=== PATIENT | female | born 1975 | race African-American/Black ===

== ENCOUNTER 2018-01-19 20:55 | Inpatient (IN) | payer OTHER ==
[2018-01-19 21:27] VITALS: BMI 21.2
[2018-01-19] MEDS ORDERED: chlordiazePOXIDE HCL 25 MG CAPSULE PO ONE (21:33)
--- NOTE | 2018-01-19 21:58 | PDOC ---
History of Present Illness - General Chief Complaint: Alcohol intoxication Stated Complaint: WITHDRAWAL Time Seen by Provider: 01/19/18 21:15 History Source: Patient Exam Limitations: No Limitations - History of Present Illness Initial Comments: 01/19/18 21:52 Patient is a 42F with history of alcohol abuse and anxiety here today complaining of alcohol withdrawal. Patient states that she was sent from [facility] due to the facility being full. Patient endorses anxiety, parathesias, hand shaking. Denies chest pain, shortness of breath, fevers, chills. Endorses generalized weakness. Endorses headache. Denies SI/HI. Last drink was 3 days ago. Denies other drug use. Past History - Past Medical History Allergies/Adverse Reactions: Allergies Allergy/AdvReac Type Severity Reaction Status Date / Time No Known Allergies Allergy Verified 01/19/18 21:49 Home Medications: Ambulatory Orders Duloxetine HCl 30 mg PO DAILY 01/19/18 Ferrous Sulfate 325 mg PO DAILY 01/19/18 Thiamine HCl [B-1] 100 mg PO DAILY 01/19/18 COPD: No - Suicide/Smoking/Psychosocial Hx Smoking History: Never smoked Hx Alcohol Use: Yes Drug/Substance Use Hx: No Review of Systems - Review of Systems Comments:: 01/19/18 21:58 GENERAL/CONSTITUTIONAL: No fever. Positive for chills. HEAD, EYES, EARS, NOSE AND THROAT: No change in vision. No sore throat. CARDIOVASCULAR: No chest pain or shortness of breath RESPIRATORY: No cough, wheezing, or hemoptysis. GASTROINTESTINAL: Positive for nausea. Negative for vomiting, diarrhea or constipation. GENITOURINARY: No dysuria, frequency, or change in urination. MUSCULOSKELETAL: No joint or muscle swelling or pain. No neck or back pain. SKIN: No rash NEUROLOGIC: No headache, vertigo, loss of consciousness, or change in strength/ sensation. HEMATOLOGIC/LYMPHATIC: No anemia, easy bleeding, or history of blood clots. ALLERGIC/IMMUNOLOGIC: No hives or skin allergy. *Physical Exam - Vital Signs Last Vital Signs Temp Pulse Resp BP Pulse Ox 97.7 F 104 H 19 166/89 100 01/19/18 21:21 01/19/18 21:21 01/19/18 21:21 01/19/18 21:21 01/19/18 21:21 - Physical Exam Comments: 01/19/18 21:59 GENERAL: Awake, alert, and fully oriented, in no acute distress HEAD: No signs of trauma, normocephalic, atraumatic EYES: PERRLA, EOMI, sclera anicteric, conjunctiva clear ENT: Auricles normal inspection, hearing grossly normal, nares patent, oropharynx clear without exudates. Moist mucosa NECK: Normal ROM, supple, no lymphadenopathy, JVD, or masses LUNGS: No distress, speaks full sentences, clear to auscultation bilaterally HEART: Tachycardic, normal S1 and S2, no murmurs, rubs or gallops, peripheral pulses normal and equal bilaterally. ABDOMEN: Soft, nontender, normoactive bowel sounds. No guarding, no rebound. No masses EXTREMITIES: Normal inspection, Normal range of motion, no edema. No clubbing or cyanosis. NEUROLOGICAL: Cranial nerves II through XII grossly intact. Normal speech, normal gait, no focal sensorimotor deficits. Bilateraly shaking hands. SKIN: Warm, Dry, normal turgor, no rashes or lesions noted. ED Treatment Course - LABORATORY CBC & Chemistry Diagram: 01/19/18 21:57 01/19/18 21:57 - RADIOLOGY Radiology Studies Ordered: Category Date Time Status CHEST X-RAY PORTABLE* [RAD] Stat Radiology 01/19/18 21:29 Ordered Medical Decision Making - Medical Decision Making 01/19/18 21:59 Patient is 42F with history of alcohol abuse and anxiety here today complaining of alcohol withdrawal. Vital signs notable for tachycardia. Exam shows shaking, patient is complaining of parathesias. No safe discharge available tonight. Will workup with cbc, cmp, ekg, cxr, upreg, ua, etoh, salicylates, tylenol and drug screen. Will give 2mg ativan. EKG shows sinus rhythm of 79bpm. No st elevations/depressions. LVH by Shane criteria. GA interval short to 104, no true delta wave appreciated. Normal QRS/ QTc. 01/19/18 23:28 Laboratory Tests 01/19/18 21:57 WBC 2.9 L RDW 22.2 H Lymphocytes % 51.4 H Anisocytosis 2+ Macrocytosis 2+ CBC shows low WBC with lymphocytic shift, macrocytotic. HIV test added. 01/19/18 23:37 Laboratory Tests 01/19/18 01/19/18 01/19/18 21:57 21:57 21:57 Sodium 138 Magnesium 1.7 L Total Bilirubin 1.4 H AST 39 H ALT 17 Serum , Qual Negative Salicylates < 1.700 Acetaminophen <2.0 Alcohol, Quantitative < 5.0 CMP shows low mag, elevated bilirubin, alcoholic liver pattern in enzymes, negative , negative tox screen. Pending UA and UTox. Will ED obs patient. *DC/Admit/Observation/Transfer Diagnosis at time of Disposition: Alcohol abuse - Discharge Dispostion Condition at time of disposition: Stable - Referrals - Patient Instructions - Post Discharge Activity
[2018-01-19] MEDS ORDERED: FOLIC ACID INJECTION - 1 MG, THIAMINE HCL 100 MG, MULTIVIT INJECTION ADULT 10 ML in SOD... IVPB ONE (22:00)
[2018-01-19 22:08] LABS: BASO % 1.4 % (0-2.0); EOS % 1.6 % (0-4.5); HEMATOCRIT 40.4 % (32.4-45.2); HEMOGLOBIN 13.1 GM/dL (10.7-15.3); LYMPH % 51.4 % (8-40); MCH 25.9 pg (25.7-33.7); MCHC 32.3 g/dl (32.0-36.0); MEAN CELL VOLUME 80.4 fl (80-96); MEAN PLT VOLUME 7.4 fl (7.5-11.1); MONO % 7.9 % (3.8-10.2); NEUT % 37.7 % (42.8-82.8); PLATELET COUNT 287 K/MM3 (134-434); RBC 5.03 M/mm3 (3.60-5.2); RDW 22.2 % (11.6-15.6); WHITE BLOOD COUNT 2.9 K/mm3 (4.0-10.0)
[2018-01-19 22:22] LABS: ADD RBC MORPHOLOGY YES
--- NOTE | 2018-01-19 23:02 | PDOC ---
Attending Attestation - HPI HPI: 01/19/18 23:22 The patient is a 42 year old female, with a significant past medical history of alcohol abuse and anxiety, who presents to the emergency department complaining of alcohol withdrawal. The patient was at [facility] and was sent to the ED from [facility] detox due to capacity issues. Patient notes that she has been experiencing anxiety, hand shaking and headache. She notes that her last drink was 3 days ago. Allergies: None Past surgical history: None reported Social History: Alcohol abuse <Jeyson Ho - Last Filed: 01/19/18 23:21> - Resident Resident Name: Richard Vazquez - ED Attending Attestation I have performed the following: I have examined & evaluated the patient, The case was reviewed & discussed with the resident, I agree w/resident's findings & plan, Exceptions are as noted - Physicial Exam PE: 01/20/18 00:06 Patient is awake and alert, tremulous and anxious appearing, mildly tachycardic on initial evaluation; Normocephalic, atraumatic PERRLA, EOMI, no photophobia, conjunctiva mildly injected bilaterally; CTA Tachycardic,RRR Tremulous Moving all tremors symmetrically - Medical Decision Making 01/20/18 00:07 42-year-old female with history of alcohol abuse presents with signs and symptoms of acute alcohol withdrawal. Patient noted to be mildly tremulous and tachycardic on initial evaluation. Patient received 2 mg of Ativan for acute alcohol withdrawal. We'll obtain CBC/CMP/magnesium level. Will supplement electrolytes as needed. We'll administer thiamin. Will place in ED opts for evaluation at [facility] in the a.m. <Trevon Calderon - Last Filed: 01/20/18 00:07>
[2018-01-19 23:03] LABS: ALBUMIN 4.1 g/dl (3.4-5.0); ANION GAP 12 (8-16); BILIRUBIN,TOTAL 1.4 mg/dL (0.2-1.0); BLOOD UREA NITROGEN 6 mg/dL (7-18); CHLORIDE 100 mmol/L (98-107); CO2 26 mmol/L (21-32); CREATININE 0.7 mg/dL (0.55-1.02); GLUCOSE,RANDOM 94 mg/dL (74-106); SGPT/ALT 17 U/L (12-78); SODIUM 138 mmol/L (136-145); TOT PROT 8.3 g/dl (6.4-8.2)
[2018-01-19 23:04] LABS: ANISOCYTOSIS 2+; MACROCYTOSIS 2+; PLATELET ESTIMATE ADEQUATE
[2018-01-19 23:15] LABS: ALK PHOS 72 U/L (45-117); SALICYLATE < 1.700 mg/dL
[2018-01-19 23:29] LABS: ACETAMINOPHEN <2.0 ug/mL; POTASSIUM 3.8 mmol/L (3.5-5.1); SGOT/AST 39 U/L (15-37)
[2018-01-20] MEDS ORDERED: THIAMINE HCL 200 MG/2 ML VIAL IVPB ONE (00:08)
[2018-01-20] MEDS ORDERED: MAGNESIUM SULF 50% (8.12 MEQ/2 ML-1 GM VIAL) IVPB ONE (00:13)
[2018-01-20] MEDS ORDERED: THIAMINE HCL 200 MG/2 ML VIAL ONE (00:25)
[2018-01-20] MEDS ORDERED: MAGNESIUM SULF 50% (8.12 MEQ/2 ML-1 GM VIAL) ONE (00:26)
[2018-01-20] MEDS ORDERED: chlordiazePOXIDE HCL 25 MG CAPSULE PO PRN (00:43)
[2018-01-20] MEDS ORDERED: SODIUM CHLORIDE 1,000 ML IV SCH (00:45)
--- NOTE | 2018-01-20 01:04 | HP ---
CHIEF COMPLAINT: alcohol detox PCP: unknown HISTORY OF PRESENT ILLNESS: 42 year old female with hx of alcohol abuse and anxiety presents to the hospital for detox from alcohol. She is being seen after ativan administration by ED. She state that she went to [facility], but they were at capacity and so she was redirected here. Patient states that her last drink was a couple of days ago, but she endorses being a regular and frequent drinker. She states that she is mildly anxious, nauseous and tremulous. Denies chest pain, SOB, diaphoresis, vomiting, diarrhea, abdominal pain, headache, visual or auditory hallucinations, dysuria, polyuria. ER course was notable for: (1) mag 1.7 (2) wbc 2.9 (3) PAST MEDICAL HISTORY: anxiety, asthma PAST SURGICAL HISTORY: none Social History: Smoking: none Alcohol: last drink 3 days ago, frequent drinker Drugs: none Allergies No Known Allergies Allergy (Verified 01/19/18 21:49) HOME MEDICATIONS: Home Medications Medication Instructions Recorded Duloxetine HCl 30 mg PO DAILY 01/19/18 Ferrous Sulfate 325 mg PO DAILY 01/19/18 Thiamine HCl [B-1] 100 mg PO DAILY 01/19/18 REVIEW OF SYSTEMS CONSTITUTIONAL: Absent: fever, chills, diaphoresis, generalized weakness, malaise, loss of appetite, weight change HEENT: Absent: rhinorrhea, nasal congestion, throat pain, throat swelling, difficulty swallowing, mouth swelling, ear pain, eye pain, visual changes CARDIOVASCULAR: Absent: chest pain, syncope, palpitations, irregular heart rate, lightheadedness , peripheral edema RESPIRATORY: Absent: cough, shortness of breath, dyspnea with exertion, orthopnea, wheezing, stridor, hemoptysis GASTROINTESTINAL: Absent: abdominal pain, abdominal distension, nausea, vomiting, diarrhea, constipation, melena, hematochezia GENITOURINARY: Absent: dysuria, frequency, urgency, hesitancy, hematuria, flank pain, genital pain MUSCULOSKELETAL: Absent: myalgia, arthralgia, joint swelling, back pain, neck pain SKIN: Absent: rash, itching, pallor HEMATOLOGIC/IMMUNOLOGIC: Absent: easy bleeding, easy bruising, lymphadenopathy, frequent infections ENDOCRINE: Absent: unexplained weight gain, unexplained weight loss, heat intolerance, cold intolerance NEUROLOGIC: Absent: headache, focal weakness or paresthesias, dizziness, unsteady gait, seizure, mental status changes, bladder or bowel incontinence PSYCHIATRIC: Absent: anxiety, depression, suicidal or homicidal ideation, hallucinations. PHYSICAL EXAMINATION Vital Signs - 24 hr 01/19/18 21:21 Temperature 97.7 F Pulse Rate 104 H Respiratory 19 Rate Blood Pressure 166/89 O2 Sat by Pulse 100 Oximetry (%) GENERAL: A&Ox3, no acute distress, but patient is very somnolent and falls asleep easily during exam EYES: PERRLA, EOMI, no nystagmus noted ENT: Moist mucus membranes NECK: No JVD LUNGS: CTA, no wheezes HEART: RRR, no murmurs ABDOMEN: Soft, nontender, BS present MUSCULOSKELETAL: No CVA Tenderness EXTREMITIES: 2+ pulses, no edema. NEUROLOGICAL: Cranial nerves II-XII intact. Mild tremors noted on exam. Laboratory Results - last 24 hr 01/19/18 01/19/18 01/19/18 21:57 21:57 21:57 WBC 2.9 L RBC 5.03 Hgb 13.1 Hct 40.4 MCV 80.4 MCH 25.9 MCHC 32.3 RDW 22.2 H Plt Count 287 MPV 7.4 L Neutrophils % 37.7 L Lymphocytes % 51.4 H Monocytes % 7.9 Eosinophils % 1.6 Basophils % 1.4 Platelet Estimate Adequate Anisocytosis 2+ Macrocytosis 2+ Sodium 138 Potassium 3.8 Chloride 100 Carbon Dioxide 26 Anion Gap 12 BUN 6 L Creatinine 0.7 Creat Clearance w eGFR > 60 Random Glucose 94 Calcium 9.0 Magnesium Total Bilirubin 1.4 H AST 39 H ALT 17 Alkaline Phosphatase 72 Total Protein 8.3 H Albumin 4.1 Serum , Qual Negative Salicylates < 1.700 Acetaminophen <2.0 Alcohol, Quantitative < 5.0 HIV 1&2 Antibody Screen HIV P24 Antigen 01/19/18 01/19/18 21:57 23:45 WBC RBC Hgb Hct MCV MCH MCHC RDW Plt Count MPV Neutrophils % Lymphocytes % Monocytes % Eosinophils % Basophils % Platelet Estimate Anisocytosis Macrocytosis Sodium Potassium Chloride Carbon Dioxide Anion Gap BUN Creatinine Creat Clearance w eGFR Random Glucose Calcium Magnesium 1.7 L Total Bilirubin AST ALT Alkaline Phosphatase Total Protein Albumin Serum , Qual Salicylates Acetaminophen Alcohol, Quantitative HIV 1&2 Antibody Screen Negative HIV P24 Antigen Negative ASSESSMENT/PLAN: 42 yo F with hx of anxiety and alcohol abuse presents for alcohol detox #Alcohol Withdrawal: patient's CIWA score is 6 on my examination (after ED administered ativan), last drink was 3 days ago -banana bag -replete magnesium -ativan given by ED -folate -start librium detox protocol at 5am -monitor for signs of withdrawal, administer PRN librium -will likely be sent to [facility] in AM -Dr. Underwood consultation appreciated #Hypertension: pt BP 166/89, could be withdrawal related -repeat BP after a couple of hours #Hypomagnesemia: mag 1.7 -ED repleted mag with 2gm, recheck in AM #FEN NS @ 100cc/hr 1 bag replete magnesium and recheck BMP in AM regular diet #Prophylaxis -early ambulatoin #Disposition -admit obs, possible xfer to [facility] in the AM Visit type - Emergency Visit Emergency Visit: Yes ED Registration Date: 01/19/18 Care time: The patient presented to the Emergency Department on the above date and was hospitalized for further evaluation of their emergent condition. - New Patient This patient is new to me today: Yes Date on this admission: 01/20/18 - Critical Care Critical Care patient: No Hospitalist Screening - Colonoscopy Questionnaire Colonoscopy Questionnaire: Colonoscopy Questionnaire - Patient: 50 - 75 years old and never had a screening colonoscopy: Unknown History of colon or rectal polyps, or CA: Unknown History of IBD, Crohn's disease or UC: Unknown History of abdominal radiation therapy as a child: Unknown - Relative: 1 with colon or rectal CA, or polyps at age 60 or younger: Unknown Colon or rectal CA diagnosed at age 45 or younger: Unknown Multiple relatives with colon or rectal CA: Unknown - Outcome: Screening Result: Negative Screen
--- NOTE | 2018-01-20 04:28 | PN ---
Teaching Attending Note Name of Resident: Eros Silverio ATTENDING PHYSICIAN STATEMENT I saw and evaluated the patient. Chart, data, reviewed. I reviewed the resident's note and discussed the case with the resident. I agree with the resident's findings and plan as documented. SUBJECTIVE: 42 year old female with hx of alcohol abuse and anxiety presented to the hospital for detox from alcohol. She drinks half a pint a day, last drink was 3 days ago. Denied any pain, sob, hallucinations. Pt would like to go to [facility] for detox (no space last night). She reports having etoh withdrawal in the past. OBJECTIVE: Last Vital Signs Temp Pulse Resp BP Pulse Ox 97.7 F 104 H 19 166/89 100 01/19/18 21:21 01/19/18 21:21 01/19/18 21:21 01/19/18 21:21 01/19/18 21:21 general- nad, aaox3, tremulous heent -nc, at, moist oral mucosa neck -supple cv -s1+s2+rrr, no murmurs abdomen- soft, nt ext- tremor in upper extremities b/l skin- no rashes Abnormal Lab Results 01/19/18 01/19/18 01/19/18 21:57 21:57 21:57 WBC 2.9 L RDW 22.2 H MPV 7.4 L Neutrophils % 37.7 L Lymphocytes % 51.4 H BUN 6 L Magnesium 1.7 L Total Bilirubin 1.4 H AST 39 H Total Protein 8.3 H ekg- nsr ASSESSMENT AND PLAN: 42yo woman requesting etoh detox -observation -thiamine -folate -MV -IV fluid hydration -CIWA protocol -librium protocol -fall precaution -replace electrolytes leukopenia- likely 2/2 etoh abuse, HIV screening was negative -trend cbc DVT ppx -heparin sc
[2018-01-20] MEDS ORDERED: chlordiazePOXIDE HCL 25 MG CAPSULE PO SCH (05:00)
[2018-01-20] MEDS ORDERED: chlordiazePOXIDE HCL 25 MG CAPSULE ONE ×2 (05:15→11:48)
[2018-01-20 05:32] LABS: HEMATOCRIT 38.8 % (32.4-45.2); HEMOGLOBIN 12.2 GM/dL (10.7-15.3); MCH 25.6 pg (25.7-33.7); MCHC 31.5 g/dl (32.0-36.0); MEAN CELL VOLUME 81.2 fl (80-96); MEAN PLT VOLUME 7.4 fl (7.5-11.1); PLATELET COUNT 282 K/MM3 (134-434); RBC 4.77 M/mm3 (3.60-5.2); WHITE BLOOD COUNT 2.5 K/mm3 (4.0-10.0)
[2018-01-20] MEDS: chlordiazePOXIDE HCL 25 MG CAPSULE PO SCH ×2 (05:40→11:55)
[2018-01-20 05:53] LABS: ALBUMIN 3.6 g/dl (3.4-5.0); ANION GAP 8 (8-16); BILIRUBIN,TOTAL 1.3 mg/dL (0.2-1.0); BLOOD UREA NITROGEN 5 mg/dL (7-18); CALCIUM 8.3 mg/dL (8.5-10.1); CHLORIDE 106 mmol/L (98-107); CO2 27 mmol/L (21-32); CREATININE 0.7 mg/dL (0.55-1.02); GLUCOSE,RANDOM 80 mg/dL (74-106); MAGNESIUM 2.5 mg/dL (1.8-2.4); POTASSIUM 3.4 mmol/L (3.5-5.1); SGOT/AST 25 U/L (15-37); SGPT/ALT 15 U/L (12-78); SODIUM 141 mmol/L (136-145); TOT PROT 7.2 g/dl (6.4-8.2)
[2018-01-20 05:54] LABS: ALK PHOS 63 U/L (45-117)
[2018-01-20 05:59] LABS: COCAINE, UR NEGATIVE ng/ml (CUTOFF=300); METHADONE, UR NEGATIVE ng/ml (CUTOFF=300); OPIATES, URI NEGATIVE ng/ml (CUTOFF=300); PHENCYCLIDINE,URINE NEGATIVE ng/ml (CUTOFF=25); URINE AMPHETAMINES NEGATIVE ng/ml (CUTOFF=500); URINE BARBITURATES NEGATIVE ng/ml (CUTOFF=200)
[2018-01-20 06:00] LABS: URINE BENZODIAZEPINES POSITIVE ng/ml (CUTOFF=200)
[2018-01-20 06:24] LABS: URINE APPEARANCE CLEAR; URINE BILIRUBIN NEGATIVE (<2.0 mg/dL); URINE COLOR LT.YELLOW; URINE GLUCOSE (UA) NEGATIVE (NEGATIVE); URINE KETONE TRACE (NEGATIVE); URINE LEUK ESTERASE NEGATIVE (NEGATIVE); URINE NITRITE NEGATIVE (NEGATIVE); URINE PROTEIN NEGATIVE (NEGATIVE); URINE UROBILINOGEN NORMAL mg/dL (0.2-1.0)
[2018-01-20] MEDS ORDERED: POTASSIUM CHLORIDE ORAL LIQUID 20 MEQ/15 ML PO ONE (08:45)
[2018-01-20] MEDS ORDERED: DEXTROSE 5%-NORMAL SALINE 1,000 ML IV SCH (08:45)
[2018-01-20] MEDS ORDERED: CYANOCOBALAMIN 1,000 MCG TABLET (FP) PO SCH (10:00)
[2018-01-20] MEDS ORDERED: PRENATAL VITAMINS W/ FOLIC ACID TABLET (FP) PO SCH (10:00)
[2018-01-20] MEDS ORDERED: THIAMINE HCL 100 MG TABLET (FP) PO SCH ×2 (10:00→22:00)
[2018-01-20] MEDS ORDERED: POTASSIUM CHLORIDE ORAL LIQUID 20 MEQ/15 ML ONE (11:29)
--- NOTE | 2018-01-20 11:30 | MSN ---
Progress Note (short form) - Note Progress Note: HISTORY OF PRESENT ILLNESS CHIEF COMPLAINT: alcohol detox HISTORY OF PRESENT ILLNESS: Manny Carmona is a 42 year old female with a past medical history of anxiety, asthma, alcohol abuse, herniated disk who originally presented to [facility] for alcohol detoxification. At [facility], beds were not available and the patient was sent to the [facility] ED for further care. Patient had her last drink 3 days prior to presentation and prior to that had been drinking a pint of vodka daily. Patient endorsed nausea, headache, tremors, anxiety. In the ED, the patient was found with low magnesium. Patient was given a dose of Ativan, thiamine, and started on Librium protocol. Patient was seen and examined at the bedside. Patient continues to endorse headache, nausea, tremors, and anxiety. Patient also endorses mild shortness of breath and generalized fatigue. Patient stated that she also has numbness and a burning sensation on her left side on upper and lower extremities and abdomen. Patient stated that she had feelings of numbness on her left side for more than a year. She stated that she had a herniated disk on the left side and that she was told she had a small stroke years prior that she was unsure of what the workup was. Patient denied chest pain, abd pain, vomiting, c/d, blurry vision, double vision. CIWA Score 8 PAST MEDICAL HISTORY: anxiety, asthma, alcohol abuse, herniated disk PAST SURGICAL HISTORY: denies Social History: Smoking: denies Alcohol: daily drinking of a pint of vodka, last drink 3 days prior Drugs: denies REVIEW OF SYSTEMS: CONSTITUTIONAL: generalized weakness, chills Absent: fever, diaphoresis, malaise, loss of appetite, weight change HEENT: Absent: rhinorrhea, nasal congestion, throat pain, throat swelling, difficulty swallowing, mouth swelling, ear pain, eye pain, visual changes CARDIOVASCULAR: Absent: chest pain, syncope, palpitations, irregular heart rate, lightheadedness , peripheral edema RESPIRATORY: mild shortness of breath Absent: cough, dyspnea with exertion, orthopnea, wheezing, stridor, hemoptysis GASTROINTESTINAL: nausea, abdominal skin numbness on left side Absent: abdominal pain, abdominal distension, vomiting, diarrhea, constipation, melena, hematochezia GENITOURINARY: Absent: dysuria, frequency, urgency, hesitancy, hematuria, flank pain, genital pain MUSCULOSKELETAL: Absent: myalgia, arthralgia, joint swelling, back pain, neck pain SKIN: Absent: rash, itching, pallor HEMATOLOGIC/IMMUNOLOGIC: Absent: easy bleeding, easy bruising, lymphadenopathy, frequent infections ENDOCRINE: Absent: unexplained weight gain, unexplained weight loss, heat intolerance, cold intolerance NEUROLOGIC: headache Absent: focal weakness or paresthesias, dizziness, unsteady gait, seizure, mental status changes, bladder or bowel incontinence PSYCHIATRIC: anxiety Absent: depression, suicidal or homicidal ideation, hallucinations. PHYSICAL EXAMINATION GENERAL: Awake, alert, and fully oriented, tired appearing. HEAD: Normal with no signs of trauma. EYES: Pupils equal, round and reactive to light, extraocular movements intact, sclera anicteric, conjunctiva clear. Eyelid sagging bilaterally. Mild horizontal nystagmus present. NECK: Normal range of motion, supple without lymphadenopathy, JVD, or masses. LUNGS: Breath sounds equal, clear to auscultation bilaterally. No wheezes, and no crackles. No accessory muscle use. HEART: Regular rate and rhythm, normal S1 and S2 without murmur, rub or gallop. ABDOMEN: Soft, nontender, not distended, normoactive bowel sounds, no guarding, no rebound, no masses. Numbness on the left side of abdomen MUSCULOSKELETAL: Normal range of motion at all joints. No bony deformities or tenderness. UPPER EXTREMITIES: 2+ pulses, warm, well-perfused. No cyanosis. No clubbing. Cap refill <2 seconds. No peripheral edema. LOWER EXTREMITIES: 2+ pulses, warm, well-perfused. No calf tenderness. No peripheral edema. NEUROLOGICAL: Cranial nerves II-XII intact. Normal speech. Numbness to gross touch and pinprick on the left side on upper and lower extremities as well as trunk. 2/5 LUE, 2/5 RUE 3/5 LLE 3/5 RLE, poor patient effort on muscle strength testing. Weakness on ambulation PSYCHIATRIC: Cooperative, at times not understanding requests during physical exam. Good eye contact. Depressed and anxious mood. SKIN: Warm, dry, normal turgor, no rashes or lesions noted. Allergies Allergy/AdvReac Type Severity Reaction Status Date / Time No Known Allergies Allergy Verified 01/19/18 21:49 Last Vital Signs Temp Pulse Resp BP Pulse Ox 98.1 F 81 17 143/75 97 01/20/18 11:00 01/20/18 11:00 01/20/18 11:00 01/20/18 11:00 01/20/18 11:00 CBC, BMP 01/20/18 05:20 01/20/18 05:20 Laboratory Results - last 24 hr 01/19/18 01/19/18 01/19/18 21:57 21:57 21:57 WBC 2.9 L RBC 5.03 Hgb 13.1 Hct 40.4 MCV 80.4 MCH 25.9 MCHC 32.3 RDW 22.2 H Plt Count 287 MPV 7.4 L Neutrophils % 37.7 L Lymphocytes % 51.4 H Monocytes % 7.9 Eosinophils % 1.6 Basophils % 1.4 Platelet Estimate Adequate Anisocytosis 2+ Macrocytosis 2+ Sodium 138 Potassium 3.8 Chloride 100 Carbon Dioxide 26 Anion Gap 12 BUN 6 L Creatinine 0.7 Creat Clearance w eGFR > 60 Random Glucose 94 Calcium 9.0 Magnesium Total Bilirubin 1.4 H AST 39 H ALT 17 Alkaline Phosphatase 72 Total Protein 8.3 H Albumin 4.1 Serum , Qual Negative Urine Color Urine Appearance Urine pH Ur Specific [place] Urine Protein Urine Glucose (UA) Urine Ketones Urine Blood Urine Nitrite Urine Bilirubin Urine Urobilinogen Ur Leukocyte Esterase Salicylates < 1.700 Opiates Screen Methadone Screen Acetaminophen <2.0 Barbiturate Screen Phencyclidine Screen Ur Amphetamines Screen MDMA (Ecstasy) Screen Benzodiazepines Screen Cocaine Screen U Marijuana (THC) Screen Alcohol, Quantitative < 5.0 HIV 1&2 Antibody Screen HIV P24 Antigen 01/19/18 01/19/18 01/20/18 21:57 23:45 05:20 WBC 2.5 L RBC 4.77 Hgb 12.2 Hct 38.8 MCV 81.2 MCH 25.6 L MCHC 31.5 L RDW 22.0 H Plt Count 282 MPV 7.4 L Neutrophils % Lymphocytes % Monocytes % Eosinophils % Basophils % Platelet Estimate Anisocytosis Macrocytosis Sodium Potassium Chloride Carbon Dioxide Anion Gap BUN Creatinine Creat Clearance w eGFR Random Glucose Calcium Magnesium 1.7 L Total Bilirubin AST ALT Alkaline Phosphatase Total Protein Albumin Serum , Qual Urine Color Urine Appearance Urine pH Ur Specific [place] Urine Protein Urine Glucose (UA) Urine Ketones Urine Blood Urine Nitrite Urine Bilirubin Urine Urobilinogen Ur Leukocyte Esterase Salicylates Opiates Screen Methadone Screen Acetaminophen Barbiturate Screen Phencyclidine Screen Ur Amphetamines Screen MDMA (Ecstasy) Screen Benzodiazepines Screen Cocaine Screen U Marijuana (THC) Screen Alcohol, Quantitative HIV 1&2 Antibody Screen Negative HIV P24 Antigen Negative 01/20/18 01/20/18 01/20/18 05:20 05:28 05:28 WBC RBC Hgb Hct MCV MCH MCHC RDW Plt Count MPV Neutrophils % Lymphocytes % Monocytes % Eosinophils % Basophils % Platelet Estimate Anisocytosis Macrocytosis Sodium 141 Potassium 3.4 L Chloride 106 Carbon Dioxide 27 Anion Gap 8 BUN 5 L Creatinine 0.7 Creat Clearance w eGFR > 60 Random Glucose 80 Calcium 8.3 L Magnesium 2.5 H Total Bilirubin 1.3 H AST 25 ALT 15 Alkaline Phosphatase 63 Total Protein 7.2 Albumin 3.6 Serum , Qual Urine Color Lt.yellow Urine Appearance Clear Urine pH 7.0 Ur Specific [place] 1.008 Urine Protein Negative Urine Glucose (UA) Negative Urine Ketones Trace H Urine Blood Negative Urine Nitrite Negative Urine Bilirubin Negative Urine Urobilinogen Normal Ur Leukocyte Esterase Negative Salicylates Opiates Screen Negative Methadone Screen Negative Acetaminophen Barbiturate Screen Negative Phencyclidine Screen Negative Ur Amphetamines Screen Negative MDMA (Ecstasy) Screen Negative Benzodiazepines Screen Positive Cocaine Screen Negative U Marijuana (THC) Screen Negative Alcohol, Quantitative HIV 1&2 Antibody Screen HIV P24 Antigen Active Medications Generic Name Dose Route Start Last Admin Trade Name Freq PRN Reason Stop Dose Admin Chlordiazepoxide HCl 25 mg 01/21/18 05:00 Librium - PO 01/21/18 23:01 [id number] DANILO Chlordiazepoxide HCl 15 mg 01/22/18 05:00 Librium - PO 01/22/18 23:01 [id number] DANILO Chlordiazepoxide HCl 25 mg 01/20/18 00:43 Librium - PO 01/23/18 00:42 Q4H PRN WITHDRAWAL(CONT SUBST) Chlordiazepoxide HCl 50 mg 01/20/18 05:00 01/20/18 05:40 Librium - PO 01/20/18 23:01 50 mg [id number] DANILO Administration Cyanocobalamin 1,000 mcg 01/20/18 10:00 Vitamin B12 - PO DAILY DANILO Dextrose/Sodium Chloride 1,000 mls @ 75 mls/hr 01/20/18 08:45 D5-Ns - IV ASDIR DANILO Multivit/Folic Acid/Iron 1 tab 01/20/18 10:00 Vitamins (Sjr) - PO DAILY DANILO Thiamine HCl 100 mg 01/20/18 10:00 Vitamin B1 - PO BID DANILO IMAGING: CHEST X-RAY: no acute pathology noted HEAD 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 Alcohol Withdrawal - Ativan given in ED - Librium protocol started - Dr. Underwood consulted, recs appreciated - vitamin 1 tab daily - thiamine 100mg bid - Vit B12 1000mg daily - D5W NS Left Sided Numbness/Weakness - history of disk herniation - CT head as above DVT PPx - early ambulation F/E/N - D5W NS at 75cc/hr - hypomagnesima, repleted - hypokalemia, repleted - replete as necessary - regular diet Disposition - observation admission pending transfer to [facility] for detox
--- NOTE | 2018-01-20 11:57 | EKG ---
Test Reason : Blood Pressure : / mmHG Vent. Rate : 079 BPM Atrial Rate : 079 BPM P-R Int : 104 ms QRS Dur : 080 ms QT Int : 400 ms P-R-T Axes : 070 -17 033 degrees QTc Int : 458 ms SINUS RHYTHM WITH SHORT WV POSSIBLE LEFT ATRIAL ENLARGEMENT LEFT VENTRICULAR HYPERTROPHY ABNORMAL ECG NO PREVIOUS ECGS AVAILABLE Confirmed by BRENDON KEMP MD ([id number]) on 01/20/2018 11:57:24 AM Referred By: Confirmed By:BRENDON KEMP MD
--- NOTE | 2018-01-20 13:12 | PN ---
Teaching Attending Note Name of Resident: Onel Blandon ATTENDING PHYSICIAN STATEMENT I saw and evaluated the patient. I reviewed the resident's note and discussed the case with the resident. I agree with the resident's findings and plan as documented. SUBJECTIVE:c/o VENTURA, nausea, restlessness for the past few days. also complaining of complete L sided numbness. states she has had this for 1 year and was told it was because of herniated disc in her lower back. was placed on muscle relaxer and told to see a surgeon but she refused surgery. thinks she had a CT of the head and that it may have shown a stroke but can not recall. denies CP, SOB, fever, chills V/C/D, auditory/visual hallucinations OBJECTIVE: Last Vital Signs Temp Pulse Resp BP Pulse Ox 98.1 F 81 17 143/75 97 01/20/18 11:00 01/20/18 11:00 01/20/18 11:00 01/20/18 11:00 01/20/18 11:00 General lethargic, slow to respond, flat affect CV S1 S2 RRR no murmur/rub/gallop Lungs CTA B/L no wheezing/rales/rhonchi Neuro CN grossly intact, LUE 2/5, RUE 3/5 LLE 1/5 RLE 2/5 sensation reduced on LUE/LLE on the abdomen and the face ASSESSMENT AND PLAN: 42yo F wtih PMH continuous ETOH abuse, anxiety, asthma and herniated disc presented to the ER for ETOH withdrawal 1. Acute ETOH withdrawal- CIWA 6. on librium protocol. banana bag. counseled on risks assoc with prolonged drinking. interested in inpatient rehab once detox is completed. detox consult 2. Hemiparesis- atypical presentation to be due to herniated disc in the lumbar spine. also feel like patient is not giving an effort as weakness noted B/L. will obtain CT head to r/o CVA. PT assessment 3. Leukopenia- due to ETOH use. 4. hypokalmeia- Kcl po 5. Hypomagnesemia- resolved 6. DVT ppx- hep sq 7. awaiting bed at [facility] for detox
[2018-01-20 13:15] VITALS: BP 131/98; PULSE 59; TEMP 98
--- NOTE | 2018-01-20 13:54 | CONSULT ---
Consult Detox [facility] Reason for Current Admission/Consult: substance use Referred by:: mikhail garrison - History History of Present Illness: patient sent yesterday to [facility] from [facility] with intoxication, became tremulous admitted for alcohol detox. labs sig nificant for hypokalemia, toleratting libirum detox protocol - Alcohol/Substance Use Hx Alcohol Use: Yes Hx Substance Use: Yes Assessment Plan - Diagnosis (1) Alcohol dependence with uncomplicated withdrawal Status: Acute (2) Hypokalemia Status: Acute (3) Depression Status: Acute (4) Anxiety Status: Acute (5) Insomnia Status: Acute (6) Dehydration Status: Acute (7) Asthma Status: Chronic (8) Hemiparesis Status: Chronic - Plan Plan: chart, imaging, labs reviewed. discussed case with medical provider. as patiet is now medically stabel can transfer to [facility] if need be to compelte detox from alcoho. supplement k, fluids, viatmins. - Medication Detox Regimen/Protocol: Librium
--- NOTE | 2018-01-20 14:03 | DS ---
Physical Exam: SUBJECTIVE: Patient seen and examined at bedside. Pt groggy. 1-word answers. OBJECTIVE: Vital Signs Period Temp Pulse Resp BP Sys/Graff Pulse Ox Last 24 Hr 97.7 F-98.1 F 59-104 17-19 127-166/75-98 97-100 PHYSICAL EXAM GENERAL: The patient is drowsy in no acute distress. HEAD: Normal with no signs of trauma. slight tremor EYES: extraocular movements intact, sclera anicteric, conjunctiva clear. ENT: oropharynx clear without exudates, moist mucous membranes. NECK: Trachea midline, full range of motion, supple. LUNGS: Breath sounds equal, clear to auscultation bilaterally, no wheezes, no crackles, no accessory muscle use. HEART: Regular rate and rhythm, S1, S2 without murmur, rub or gallop. ABDOMEN: Soft, nontender, nondistended, normoactive bowel sounds, no guarding, no rebound, no hepatosplenomegaly, no masses. EXTREMITIES: 2+ pulses, warm, well-perfused, no edema. No asterixis noted. Mild tremor on extension. NEUROLOGICAL: Pt uncooperative for exam. gait not observed. PSYCH: Normal mood, normal affect. SKIN: Warm, dry, normal turgor, no rashes or lesions noted. LABS Laboratory Results - last 24 hr 01/19/18 01/19/18 01/19/18 21:57 21:57 21:57 WBC 2.9 L RBC 5.03 Hgb 13.1 Hct 40.4 MCV 80.4 MCH 25.9 MCHC 32.3 RDW 22.2 H Plt Count 287 MPV 7.4 L Neutrophils % 37.7 L Lymphocytes % 51.4 H Monocytes % 7.9 Eosinophils % 1.6 Basophils % 1.4 Platelet Estimate Adequate Anisocytosis 2+ Macrocytosis 2+ Sodium 138 Potassium 3.8 Chloride 100 Carbon Dioxide 26 Anion Gap 12 BUN 6 L Creatinine 0.7 Creat Clearance w eGFR > 60 Random Glucose 94 Calcium 9.0 Magnesium Total Bilirubin 1.4 H AST 39 H ALT 17 Alkaline Phosphatase 72 Total Protein 8.3 H Albumin 4.1 Vitamin B12 Serum Folate TSH Serum , Qual Negative Urine Color Urine Appearance Urine pH Ur Specific [place] Urine Protein Urine Glucose (UA) Urine Ketones Urine Blood Urine Nitrite Urine Bilirubin Urine Urobilinogen Ur Leukocyte Esterase Salicylates < 1.700 Opiates Screen Methadone Screen Acetaminophen <2.0 Barbiturate Screen Phencyclidine Screen Ur Amphetamines Screen MDMA (Ecstasy) Screen Benzodiazepines Screen Cocaine Screen U Marijuana (THC) Screen Alcohol, Quantitative < 5.0 HIV 1&2 Antibody Screen HIV P24 Antigen 01/19/18 01/19/18 01/20/18 21:57 23:45 05:20 WBC 2.5 L RBC 4.77 Hgb 12.2 Hct 38.8 MCV 81.2 MCH 25.6 L MCHC 31.5 L RDW 22.0 H Plt Count 282 MPV 7.4 L Neutrophils % Lymphocytes % Monocytes % Eosinophils % Basophils % Platelet Estimate Anisocytosis Macrocytosis Sodium Potassium Chloride Carbon Dioxide Anion Gap BUN Creatinine Creat Clearance w eGFR Random Glucose Calcium Magnesium 1.7 L Total Bilirubin AST ALT Alkaline Phosphatase Total Protein Albumin Vitamin B12 Serum Folate TSH Serum , Qual Urine Color Urine Appearance Urine pH Ur Specific [place] Urine Protein Urine Glucose (UA) Urine Ketones Urine Blood Urine Nitrite Urine Bilirubin Urine Urobilinogen Ur Leukocyte Esterase Salicylates Opiates Screen Methadone Screen Acetaminophen Barbiturate Screen Phencyclidine Screen Ur Amphetamines Screen MDMA (Ecstasy) Screen Benzodiazepines Screen Cocaine Screen U Marijuana (THC) Screen Alcohol, Quantitative HIV 1&2 Antibody Screen Negative HIV P24 Antigen Negative 01/20/18 01/20/18 01/20/18 05:20 05:20 05:20 WBC RBC Hgb Hct MCV MCH MCHC RDW Plt Count MPV Neutrophils % Lymphocytes % Monocytes % Eosinophils % Basophils % Platelet Estimate Anisocytosis Macrocytosis Sodium 141 Potassium 3.4 L Chloride 106 Carbon Dioxide 27 Anion Gap 8 BUN 5 L Creatinine 0.7 Creat Clearance w eGFR > 60 Random Glucose 80 Calcium 8.3 L Magnesium 2.5 H Total Bilirubin 1.3 H AST 25 ALT 15 Alkaline Phosphatase 63 Total Protein 7.2 Albumin 3.6 Vitamin B12 475 Cancelled Serum Folate Cancelled TSH 0.91 Cancelled Serum , Qual Urine Color Urine Appearance Urine pH Ur Specific [place] Urine Protein Urine Glucose (UA) Urine Ketones Urine Blood Urine Nitrite Urine Bilirubin Urine Urobilinogen Ur Leukocyte Esterase Salicylates Opiates Screen Methadone Screen Acetaminophen Barbiturate Screen Phencyclidine Screen Ur Amphetamines Screen MDMA (Ecstasy) Screen Benzodiazepines Screen Cocaine Screen U Marijuana (THC) Screen Alcohol, Quantitative HIV 1&2 Antibody Screen HIV P24 Antigen 01/20/18 01/20/18 05:28 05:28 WBC RBC Hgb Hct MCV MCH MCHC RDW Plt Count MPV Neutrophils % Lymphocytes % Monocytes % Eosinophils % Basophils % Platelet Estimate Anisocytosis Macrocytosis Sodium Potassium Chloride Carbon Dioxide Anion Gap BUN Creatinine Creat Clearance w eGFR Random Glucose Calcium Magnesium Total Bilirubin AST ALT Alkaline Phosphatase Total Protein Albumin Vitamin B12 Serum Folate TSH Serum , Qual Urine Color Lt.yellow Urine Appearance Clear Urine pH 7.0 Ur Specific [place] 1.008 Urine Protein Negative Urine Glucose (UA) Negative Urine Ketones Trace H Urine Blood Negative Urine Nitrite Negative Urine Bilirubin Negative Urine Urobilinogen Normal Ur Leukocyte Esterase Negative Salicylates Opiates Screen Negative Methadone Screen Negative Acetaminophen Barbiturate Screen Negative Phencyclidine Screen Negative Ur Amphetamines Screen Negative MDMA (Ecstasy) Screen Negative Benzodiazepines Screen Positive Cocaine Screen Negative U Marijuana (THC) Screen Negative Alcohol, Quantitative HIV 1&2 Antibody Screen HIV P24 Antigen HOSPITAL COURSE: Date of Admission:01/20/18 Date of Discharge: 01/20/18 Pt is a 42y/o female with a significant past medical history of alcohol abuse admitted for alcohol detoxification. Pt was placed on observation and eventually admitted while pending availablility at detox facility [facility]. Pt received Ativan in the ED and was started on Librium protocol. She was also given Vit B12, Folate, and Thiamine. Dr. Underwood was consulted. Once she was more alert, pt mentioned that she had left sided numbness for the last year. Head CT (01/20/2018) was done to r/o old stroke. 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 Pt was given fluids and electrolytes were repleted. Following a conversation with Dr. Underwood, pt was accepted to [facility] and was transferred shortly thereafter. Minutes to complete discharge: 30 Discharge Summary Reason For Visit: ALCOHOL ABUSE Current Active Problems Alcohol abuse (Acute) Alcohol dependence with uncomplicated withdrawal (Acute) Anxiety (Acute) Dehydration (Acute) Depression (Acute) Hypokalemia (Acute) Insomnia (Acute) Asthma (Chronic) Hemiparesis (Chronic) Condition: Stable - Instructions Diet, Activity, Other Instructions: You were brought to the hospital because of alcohol intoxication. You are being sent to [facility] to complete your detox. You need to follow up with your primary care doctor. You need to follow up with a neurologist as an out patient. If you do not know one, you can ask your primary care doctor for help. If you do not have a primary care doctor, you can come to the [facility]. Onel Blandon MD / Shannon Sosa MD [phone] [address], [place] [address] Your case was discussed with Dr. Underwood, and you have been accepted to [facility] to finish your detox. Take fall risk precaution. You are being sent with a medication to help prevent seizures. It will be given to you by the staff at [facility]. You are being sent with vitamins (thiamine, folate, b12) to ensure you are not deficient. You should continue taking your home medications once you finish your detox at [facility]. You should not drink alcohol. Referrals: Sabas Hearn DO [Staff Physician] - (neurology) Jack Underwood MD [Staff Physician] - 1 Week Onel Blandon RES [Resident] - 1 Week Shannon Sosa MD [Staff Physician] - 1 Week Disposition: TRANSFER ACUTE CARE/OTHER HOSP - Home Medications Comprehensive Discharge Medication List: Ambulatory Orders Duloxetine HCl 30 mg PO DAILY 01/19/18 Ferrous Sulfate 325 mg PO DAILY 01/19/18 Thiamine HCl [B-1] 100 mg PO DAILY 01/19/18 Chlordiazepoxide [Librium -] 15 mg PO [id number] capsule MDD 15 01/20/18 Chlordiazepoxide [Librium -] 25 mg PO Q4H PRN capsule MDD 150 01/20/18 Chlordiazepoxide [Librium -] 25 mg PO [id number] capsule MDD 100 01/20/18 Chlordiazepoxide [Librium -] 50 mg PO [id number] capsule MDD 200 01/20/18 Chlordiazepoxide [Librium -] 50 mg PO [id number] capsule MDD 200 01/20/18 Cyanocobalamin [Vitamin B12 -] 1,000 mcg PO DAILY #30 tablet 01/20/18 Vitamins (Sjr) - 1 tab PO DAILY #30 tablet 01/20/18 This patient is new to me today: No Emergency Visit: No Critical Care patient: No - Discharge Referral Referred to [facility] No
[2018-01-20] MEDS ORDERED: POTASSIUM CHLORIDE TABS 20 MEQ TABLET.ER (FP) PO SCH (22:00)
[2018-01-21] MEDS ORDERED: chlordiazePOXIDE HCL 25 MG CAPSULE PO SCH (05:00)
[2018-01-22] MEDS ORDERED: chlordiazePOXIDE 5 MG CAPSULE PO SCH (05:00)
== END 2018-01-20 15:51 | disposition other institution (70) | DRG 775 ==
LOC: JER 20:55 → JERBED 23:51 → UNDOADMOB 23:57 → JERBED 23:57 → OBSVTOIN 01-20 07:47 → J5S 01-20 12:41
PROVIDERS: ADMIT Internal Medicine; ATTEND Internal Medicine
PROC: HZ2ZZZZ Detoxification Services for Substance Abuse Treatment (ICD-10-PCS; principal; 2018-01-20)
DX: F10.230 Alcohol dependence with withdrawal, uncomplicated (principal); E86.0 Dehydration; F41.8 Other specified anxiety disorders; E87.6 Hypokalemia; G47.00 Insomnia, unspecified; J45.909 Unspecified asthma, uncomplicated; G81.90 Hemiplegia, unspecified affecting unspecified side; D72.819 Decreased white blood cell count, unspecified; E83.42 Hypomagnesemia
CPT/HCPCS: 36415; 70450-TC; 71045-TC-FY; 80053; 80307; 81003; 82607; 82746; 83735; 84443; 84703; 85025; 85027; 87389; 93005; 93010; 99284-25; G0378; J7030

== ENCOUNTER 2018-01-20 16:14 | Inpatient (IN) | payer OTHER ==
[2018-01-20 17:42] VITALS: BMI 19.5
--- NOTE | 2018-01-20 18:31 | HP ---
CIWA Score - CIWA Score Nausea/Vomitin Muscle Tremors: 3 Anxiety: 1-Mildly Anxious Agitation: 0-Normal Activity Paroxysmal Sweats: 1-Minimal Palms Moist Orientation: 0-Oriented Tacttile Disturbances: 2-Mild Itch/Numbness/Burn (both feet) Auditory Disturbances: 0-None Visual Disturbances: 1-Very Mild Sensitivity Headache: 2-Mild CIWA-Ar Total Score: 12 Admission ROS BHS - HPI Chief Complaint: " My hands get more shaky when I do not drink." Allergies/Adverse Reactions: Allergies Allergy/AdvReac Type Severity Reaction Status Date / Time No Known Allergies Allergy Verified 01/20/18 17:42 History of Present Illness: Patient a is a 42 year old female with a past medical history of alcohol dependence is here seeking detox for the first time. Patient was evaluated yesterday at [facility] for alcohol withdrawal sx. PMHX: HTN, asthma, neuropathy, herniated disk , anxiety, depression. longest sobriety 4 weeks. Denies suicidal / homicidal ideation or suicide attempts. Exam Limitations: No Limitations - Ebola screening Have you been sick,other than usual withdrawal symptoms: No - Review of Systems Constitutional: Chills, Loss of Appetite, Changes in sleep EENT: reports: No Symptoms Reported Respiratory: reports: No Symptoms reported GI: reports: No Symptoms Reported, Nausea, Poor Appetite, Poor Fluid Intake : reports: No Symptoms Reported Musculoskeletal: reports: Joint Pain (left hip) Integumentary: reports: Sweating Neuro: reports: Headache Endocrine: reports: No Symptoms Reported Hematology: reports: Anemia Psychiatric: reports: Orientated x3, Anxious Other Systems: Reviewed and Negative Patient History - Patient Medical History Hx Anemia: No Hx Asthma: No Hx Chronic Obstructive Pulmonary Disease (COPD): No Hx Cancer: No Hx Cardiac Disorders: No Hx Congestive Heart Failure: No Hx Hypertension: Yes Hx Hypercholesterolemia: No Hx Pacemaker: No HX Cerebrovascular Accident: No Hx Seizures: No Hx Dementia: No Hx Diabetes: No Hx Gastrointestinal Disorders: No Hx Liver Disease: No Hx Genitourinary Disorders: No Hx Sexually Transmitted Disorders: No Hx Renal Disease (ESRD): No Hx Thyroid Disease: No Hx Human Immunodeficiency Virus (HIV): No (last tested three months ago ) Hx Hepatitis C: No Hx Depression: Yes Hx Suicide Attempt: No Hx Bipolar Disorder: No Hx Schizophrenia: No - Patient Surgical History Past Surgical History: No Hx Neurologic Surgery: No Hx Cataract Extraction: No Hx Cardiac Surgery: No Hx Lung Surgery: No Hx Breast Surgery: No Hx Breast Biopsy: No Hx Abdominal Surgery: No Hx Appendectomy: No Hx Cholecystectomy: No Hx Genitourinary Surgery: No Hx Section: No Hx Orthopedic Surgery: No Hx Hysterectomy: No Anesthesia Reaction: No - PPD History Previous Implant?: Yes Documented Results: Negative w/o proof PPD to be Administered?: Yes - Reproductive History Patient is a Female of Child Bearing Age (11 -55 yrs old): Yes Last Menstrual Period: 01/18/18 Patient : No - Smoking Cessation Smoking history: Never smoked Have you smoked in the past 12 months: No Hx Chewing Tobacco Use: No Initiated information on smoking cessation: No - Substance & Tx. History Hx Alcohol Use: Yes Hx Substance Use: Yes Substance Use Type: Alcohol Hx Substance Use Treatment: No - Substances Abused Alcohol Route: Oral Frequency: Daily Amount used: LIQUOR- 3 PINTS Age of first use: 35 Date of Last Use: 01/18/18 Family Disease History - Family Disease History Family Disease History: Diabetes: Mother (alive ), Other: Father (alive, legally blind ) Admission Physical Exam S - Vital Signs Vital Signs: Vital Signs - 24 hr 01/20/18 17:40 Temperature 97.6 F Pulse Rate 118 H Respiratory 20 Rate Blood Pressure 133/113 - Physical General Appearance: Yes: Mild Distress, Thin, Tremorous, Sweating, Anxious HEENTM: Yes: EOMI, Hearing grossly Normal, Normal ENT Inspection, Normocephalic , Normal Voice, Pharynx Normal, Tm's normal Respiratory: Yes: Chest Non-Tender, Lungs Clear, Normal Breath Sounds, No Respiratory Distress, No Accessory Muscle Use Breast: Yes: Breast Exam Deferred Cardiology: Yes: Regular Rhythm, Regular Rate Abdominal: Yes: Normal Bowel Sounds, Non Tender, Flat, Soft Genitourinary: Yes: Within Normal Limits Back: Yes: Normal Inspection Musculoskeletal: Yes: full range of Motion, Gait Steady, Pelvis Stable Extremities: Yes: Normal Capillary Refill, Normal Inspection, Normal Range of Motion, Non-Tender Neurological: Yes: phlebotomy director II-XII NML intact, Fully Oriented, Alert, Motor Strength 5/5, Depressed Affect Integumentary: Yes: Normal Color, Warm, Diaphoresis Lymphatic: Yes: Within Normal Limits - Diagnostic (1) Asthma Current Visit: Yes Status: Chronic Qualifiers: Asthma severity: unspecified severity Asthma persistence: unspecified Asthma complication type: unspecified Qualified Code(s): J45.909 - Unspecified asthma, uncomplicated (2) Alcohol dependence with uncomplicated withdrawal Current Visit: Yes Status: Acute (3) Dehydration Current Visit: Yes Status: Acute (4) Depression Current Visit: Yes Status: Acute Qualifiers: Depression Type: unspecified Qualified Code(s): F32.9 - Major depressive disorder, single episode, unspecified (5) Elevated blood pressure reading in office with diagnosis of hypertension Current Visit: Yes Status: Acute Cleared for Admission S - Detox or Rehab S Level of Care: Medically Managed Detox Regimen/Protocol: Librium S Breath Alcohol Content Breath Alcohol Content: 0 Urine Pregancy Test - Result Urine Test Results: Negative- NO Line Present Urine Drug Screen - Results Drug Screen Negative: No Urine Drug Screen Results: BZO-Benzodiazepines
[2018-01-20] MEDS ORDERED: MAG HYDROX/AL HYDROX/SIMETH 30 ML UNIT-DOSE CUP PO PRN (18:44)
[2018-01-20] MEDS ORDERED: P-EPHED 60MG/TRIPROLIDI 2.5MG TABLET PO PRN (18:44)
[2018-01-20] MEDS ORDERED: MAGNESIUM HYDROX 2400MG/30ML ORAL SUSPENSION 30 ML CUP PO PRN (18:44)
[2018-01-20] MEDS ORDERED: IBUPROFEN 400 MG TABLET (FP) PO PRN (18:44)
[2018-01-20] MEDS ORDERED: MENTHOL/PHENOL 1 EACH UD MM PRN (18:44)
[2018-01-20] MEDS ORDERED: MAGNESIUM CITRATE 300 ML BOTTLE PO PRN (18:44)
[2018-01-20] MEDS ORDERED: LOPERAMIDE HCL 2 MG CAPSULE PO PRN (18:44)
[2018-01-20] MEDS ORDERED: chlordiazePOXIDE HCL 25 MG CAPSULE PO PRN (19:29)
[2018-01-20] MEDS ORDERED: chlordiazePOXIDE HCL 25 MG CAPSULE PO ONE (19:30)
[2018-01-20] MEDS ORDERED: guaiFENesin/D-METHORPHAN HB 10 ML UNIT-DOSE CUPS PO PRN (19:32)
[2018-01-20] MEDS ORDERED: hydrOXYzine PAMOATE 50 MG CAPSULE (FP) PO PRN (19:32)
[2018-01-20] MEDS: chlordiazePOXIDE HCL 25 MG CAPSULE PO SCH (22:21)
[2018-01-20] MEDS: THIAMINE HCL 100 MG TABLET (FP) PO SCH (22:21)
[2018-01-21] MEDS: chlordiazePOXIDE HCL 25 MG CAPSULE PO SCH ×4 (05:35→22:21)
[2018-01-21 09:38] LABS: HEMATOCRIT 35.5 % (32.4-45.2); HEMOGLOBIN 11.3 GM/dL (10.7-15.3); MCH 26.2 pg (25.7-33.7); MCHC 31.9 g/dl (32.0-36.0); MEAN CELL VOLUME 82.1 fl (80-96); MEAN PLT VOLUME 7.9 fl (7.5-11.1); PLATELET COUNT 240 K/MM3 (134-434); RBC 4.32 M/mm3 (3.60-5.2); RDW 21.8 % (11.6-15.6); WHITE BLOOD COUNT 3.7 K/mm3 (4.0-10.0)
[2018-01-21 09:48] LABS: CHLORIDE 107 mmol/L (98-107); POTASSIUM 3.8 mmol/L (3.5-5.1); SODIUM 139 mmol/L (136-145)
[2018-01-21 09:59] LABS: ALBUMIN 3.3 g/dl (3.4-5.0); ALK PHOS 57 U/L (45-117); ANION GAP 8 (8-16); BILIRUBIN,TOTAL 0.5 mg/dL (0.2-1.0); BLOOD UREA NITROGEN 5 mg/dL (7-18); CO2 24 mmol/L (21-32); CREATININE 0.7 mg/dL (0.55-1.02); GLUCOSE,RANDOM 85 mg/dL (74-106); SGOT/AST 18 U/L (15-37); SGPT/ALT 13 U/L (12-78); TOT PROT 6.7 g/dl (6.4-8.2)
--- NOTE | 2018-01-21 10:24 | PN ---
[facility] CIWA - CIWA Score Nausea/Vomitin Muscle Tremors: 3 Anxiety: 3 Agitation: 3 Paroxysmal Sweats: 1-Minimal Palms Moist Orientation: 0-Oriented Tacttile Disturbances: 1-Very Mild Itch/Numbness Auditory Disturbances: 1-Very Mild Visual Disturbances: 0-None Headache: 2-Mild CIWA-Ar Total Score: 17 S Progress Note (SOAP) Subjective: ALERT,IRRITABLE,ANXIOUS,INTERRUPTED SLEEP, Objective: 01/21/18 10:21 Vital Signs Temperature 98.1 F 01/21/18 09:42 Pulse Rate 77 01/21/18 09:42 Respiratory Rate 16 01/21/18 09:42 Blood Pressure 110/74 01/21/18 09:42 O2 Sat by Pulse Oximetry (%) EKG NSR,LVH PROLONG QT 388/455 NO CHEST PAIN,NO SOB,NO DIZZINESS Laboratory Last Values WBC 3.7 K/mm3 (4.0-10.0) L D 01/21/18 07:00 RBC 4.32 M/mm3 (3.60-5.2) 01/21/18 07:00 Hgb 11.3 GM/dL (10.7-15.3) 01/21/18 07:00 Hct 35.5 % (32.4-45.2) 01/21/18 07:00 MCV 82.1 fl (80-96) 01/21/18 07:00 MCH 26.2 pg (25.7-33.7) 01/21/18 07:00 MCHC 31.9 g/dl (32.0-36.0) L 01/21/18 07:00 RDW 21.8 % (11.6-15.6) H 01/21/18 07:00 Plt Count 240 K/MM3 (134-434) 01/21/18 07:00 MPV 7.9 fl (7.5-11.1) 01/21/18 07:00 Sodium 139 mmol/L (136-145) 01/21/18 07:00 Potassium 3.8 mmol/L (3.5-5.1) 01/21/18 07:00 Chloride 107 mmol/L (98-107) 01/21/18 07:00 Carbon Dioxide 24 mmol/L (21-32) 01/21/18 07:00 Anion Gap 8 (8-16) 01/21/18 07:00 BUN 5 mg/dL (7-18) L 01/21/18 07:00 Creatinine 0.7 mg/dL (0.55-1.02) 01/21/18 07:00 Creat Clearance w eGFR > 60 (>60) 01/21/18 07:00 Random Glucose 85 mg/dL (74-106) 01/21/18 07:00 Calcium 9.0 mg/dL (8.5-10.1) 01/21/18 07:00 Total Bilirubin 0.5 mg/dL (0.2-1.0) D 01/21/18 07:00 AST 18 U/L (15-37) 01/21/18 07:00 ALT 13 U/L (12-78) 01/21/18 07:00 Alkaline Phosphatase 57 U/L (45-117) 01/21/18 07:00 Total Protein 6.7 g/dl (6.4-8.2) 01/21/18 07:00 Albumin 3.3 g/dl (3.4-5.0) L 01/21/18 07:00 01/21/18 10:23 LABS PENDING Assessment: 01/21/18 10:23 WITHDRAWAL SYMPTOM Plan: CONTINUE DETOX
[2018-01-21] MEDS: CYANOCOBALAMIN 1,000 MCG TABLET (FP) PO SCH (10:50)
[2018-01-21] MEDS: PRENATAL VITAMINS W/ FOLIC ACID TABLET (FP) PO SCH (11:04)
[2018-01-21] MEDS: amLODIPine BESYLATE 5 MG TABLET (FP) PO SCH (11:04)
[2018-01-21] MEDS: FERROUS SO4 325 MG TABLET (FP) PO SCH (11:05)
--- NOTE | 2018-01-21 11:23 | EKG ---
Test Reason : Blood Pressure : / mmHG Vent. Rate : 065 BPM Atrial Rate : 065 BPM P-R Int : 114 ms QRS Dur : 088 ms QT Int : 394 ms P-R-T Axes : 070 -13 050 degrees QTc Int : 409 ms NORMAL SINUS RHYTHM WITH SINUS ARRHYTHMIA MINIMAL VOLTAGE CRITERIA FOR LVH, MAY BE NORMAL VARIANT WHEN COMPARED WITH ECG OF 19-JAN-2018 21:36, QT HAS SHORTENED Confirmed by BAYLEE CARTER, KUSHAL ([id number]) on 01/21/2018 11:23:52 AM Referred By: Confirmed By:KUSHAL BEACH MD
--- NOTE | 2018-01-21 17:30 | CONSULT ---
[facility] Psychiatric Consult - Data Date of interview: 01/21/18 Admission source: [facility] Identifying data: First admission to [facility] for this 42 y/o AA female seeking detox treatment on for alcohol dependence.Patient is single,a mother of two,domiciled,unemployed and supported by relatives. Substance Abuse History: Confirmed by patient in this session.Smoking history: Never smoked. Have you smoked in the past 12 months: No. Hx Chewing Tobacco Use: No. Initiated information on smoking cessation: No. - Substance & Tx. History. Hx Alcohol Use: Yes. Hx Substance Use: Yes. Substance Use Type: Alcohol. Hx Substance Use Treatment: No. - Substances Abused. Alcohol. Route: Oral. Frequency: Daily. Amount used: LIQUOR- 3 PINTS. Age of first use : 35. Date of Last Use: 01/18/18 Medical History: Bronchial asthma,hypertension,neuropathy,herniated discs and chronic lumbar pain. Psychiatric History: Patient denies. Physical/Sexual Abuse/Trauma History: Patient denies. Additional Comment: Urine Drug Screen Results: BZO-Benzodiazepines.Noted. Mental Status Exam - Mental Status Exam Alert and Oriented to: Time, Place, Person Cognitive Function: Good Patient Appearance: Well Groomed (thin habitus,petite,short stature) Mood: Nervous, Anxious Affect: Appropriate, Normal Range Patient Behavior: Appropriate, Cooperative Speech Pattern: Clear, Appropriate Voice Loudness: Normal Thought Process: Intact, Goal Oriented Thought Disorder: Not Present Hallucinations: Denies Suicidal Ideation: Denies Homicidal Ideation: Denies Insight/Judgement: Fair Sleep: Poorly, Difficulty falling asleep Appetite: Good Muscle strength/Tone: Normal Gait/Station: Normal Psychiatric Findings - Problem List ([place] 1, 2,3) (1) Alcohol dependence with uncomplicated withdrawal Current Visit: Yes Status: Acute (2) Insomnia Current Visit: Yes Status: Acute - Initial Treatment Plan Initial Treatment Plan: Psychoeducation.Sleep hygiene.Detoxification in progress.Ambien 5 mg po hs prn.Patient is made aware of the risk of parasomnias (sleep-walking).Observation.
[2018-01-21] MEDS: MELATONIN 5 MG TABLETS PO PRN (22:21)
[2018-01-21] MEDS: THIAMINE HCL 100 MG TABLET (FP) PO SCH (22:21)
[2018-01-22] MEDS: chlordiazePOXIDE HCL 25 MG CAPSULE PO SCH ×3 (05:17→17:47)
[2018-01-22] MEDS: CYANOCOBALAMIN 1,000 MCG TABLET (FP) PO SCH (10:43)
[2018-01-22] MEDS: FERROUS SO4 325 MG TABLET (FP) PO SCH (10:43)
[2018-01-22] MEDS: PRENATAL VITAMINS W/ FOLIC ACID TABLET (FP) PO SCH (10:43)
[2018-01-22] MEDS: amLODIPine BESYLATE 5 MG TABLET (FP) PO SCH (10:43)
--- NOTE | 2018-01-22 15:18 | PN ---
[facility] CIWA - CIWA Score Nausea/Vomitin Muscle Tremors: 3 Anxiety: 3 Agitation: 2 Paroxysmal Sweats: 3 Orientation: 0-Oriented Tacttile Disturbances: 0-None Auditory Disturbances: 0-None Visual Disturbances: 0-None Headache: 0-None Present CIWA-Ar Total Score: 14 S Progress Note (SOAP) Subjective: Sleep disturbance Sweats shakes Objective: 01/22/18 15:14 A & O x 3 Vital Signs Temperature 97.9 F 01/22/18 13:56 Pulse Rate 89 01/22/18 13:56 Respiratory Rate 18 01/22/18 13:56 Blood Pressure 123/85 01/22/18 13:56 O2 Sat by Pulse Oximetry (%) Laboratory Last Values WBC 3.7 K/mm3 (4.0-10.0) L D 01/21/18 07:00 RBC 4.32 M/mm3 (3.60-5.2) 01/21/18 07:00 Hgb 11.3 GM/dL (10.7-15.3) 01/21/18 07:00 Hct 35.5 % (32.4-45.2) 01/21/18 07:00 MCV 82.1 fl (80-96) 01/21/18 07:00 MCH 26.2 pg (25.7-33.7) 01/21/18 07:00 MCHC 31.9 g/dl (32.0-36.0) L 01/21/18 07:00 RDW 21.8 % (11.6-15.6) H 01/21/18 07:00 Plt Count 240 K/MM3 (134-434) 01/21/18 07:00 MPV 7.9 fl (7.5-11.1) 01/21/18 07:00 Sodium 139 mmol/L (136-145) 01/21/18 07:00 Potassium 3.8 mmol/L (3.5-5.1) 01/21/18 07:00 Chloride 107 mmol/L (98-107) 01/21/18 07:00 Carbon Dioxide 24 mmol/L (21-32) 01/21/18 07:00 Anion Gap 8 (8-16) 01/21/18 07:00 BUN 5 mg/dL (7-18) L 01/21/18 07:00 Creatinine 0.7 mg/dL (0.55-1.02) 01/21/18 07:00 Creat Clearance w eGFR > 60 (>60) 01/21/18 07:00 Random Glucose 85 mg/dL (74-106) 01/21/18 07:00 Calcium 9.0 mg/dL (8.5-10.1) 01/21/18 07:00 Total Bilirubin 0.5 mg/dL (0.2-1.0) D 01/21/18 07:00 AST 18 U/L (15-37) 01/21/18 07:00 ALT 13 U/L (12-78) 01/21/18 07:00 Alkaline Phosphatase 57 U/L (45-117) 01/21/18 07:00 Total Protein 6.7 g/dl (6.4-8.2) 01/21/18 07:00 Albumin 3.3 g/dl (3.4-5.0) L 01/21/18 07:00 RPR Titer Nonreactive (NONREACTIVE) 01/21/18 07:00 HIV 1&2 Antibody Screen Negative 01/21/18 07:00 HIV P24 Antigen Negative 01/21/18 07:00 Labs noted, urine pending Assessment: 01/22/18 15:17 withdrawal sx Plan: continue detox
[2018-01-22] MEDS: THIAMINE HCL 100 MG TABLET (FP) PO SCH (22:22)
[2018-01-22] MEDS: chlordiazePOXIDE 5 MG CAPSULE PO SCH (22:22)
[2018-01-22] MEDS: MELATONIN 5 MG TABLETS PO PRN (22:24)
[2018-01-23] MEDS: chlordiazePOXIDE 5 MG CAPSULE PO SCH ×3 (05:20→17:40)
[2018-01-23] MEDS: ACETAMINOPHEN 325 MG TABLET (FP) PO PRN ×2 (05:23→10:32)
[2018-01-23] MEDS: FERROUS SO4 325 MG TABLET (FP) PO SCH (10:29)
[2018-01-23] MEDS: CYANOCOBALAMIN 1,000 MCG TABLET (FP) PO SCH (10:29)
[2018-01-23] MEDS: amLODIPine BESYLATE 5 MG TABLET (FP) PO SCH (10:30)
[2018-01-23] MEDS: PRENATAL VITAMINS W/ FOLIC ACID TABLET (FP) PO SCH (10:30)
[2018-01-23] MEDS ORDERED: LIDOCAINE 5% TOPICAL PATCH TP ONE (10:53)
--- NOTE | 2018-01-23 10:56 | PN ---
[facility] Progress Note (SOAP) Subjective: back pain sweats Objective: 01/23/18 10:55 Vital Signs Temperature 97.3 F L 01/23/18 06:19 Pulse Rate 52 L 01/23/18 06:19 Respiratory Rate 18 01/23/18 06:19 Blood Pressure 128/84 01/23/18 06:19 O2 Sat by Pulse Oximetry (%) aaox3 ambulating no acute distress Assessment: 01/23/18 10:55 mild withdrawal sx Plan: continue detox increase fluids lidocaine patch d/c in am
[2018-01-23] MEDS ORDERED: LIDOCAINE PATCH REMOVAL MC SCH (22:00)
[2018-01-23] MEDS: THIAMINE HCL 100 MG TABLET (FP) PO SCH (22:21)
[2018-01-23] MEDS: chlordiazePOXIDE HCL 10 MG CAPSULE PO SCH (22:21)
[2018-01-23] MEDS: MELATONIN 5 MG TABLETS PO PRN (22:22)
[2018-01-24] MEDS: chlordiazePOXIDE HCL 10 MG CAPSULE PO SCH (05:21)
[2018-01-24 06:21] VITALS: TEMP 98.1
--- NOTE | 2018-01-24 08:05 | PN ---
[facility] Progress Note (SOAP) Subjective: ALERT.NO COMPLAINT Objective: 01/24/18 08:03 Vital Signs Temperature 98.1 F 01/24/18 06:20 Pulse Rate 54 L 01/24/18 06:20 Respiratory Rate 16 01/24/18 06:20 Blood Pressure 124/75 01/24/18 06:20 O2 Sat by Pulse Oximetry (%) Assessment: 01/24/18 08:04 DETOX COMPLETED,NO WITHDRAWAL SYMPTOM Plan: DISCHARGE TODAY,FOLLOW UP WITH AFTER CARE PROGRAM ARRANGEMENT
--- NOTE | 2018-01-24 08:10 | DS ---
[facility] Detox Discharge Summary Admission Date: 01/20/18 Discharge Date: 01/24/18 - History Present History: Alcohol Dependence Additional Comments: FOLLOW UP WITH AFTER CARE PROGRAM ARRANGEMENT Pertinent Past History: HYPERTENSION ASTHMA DEHYDRATION HISTORY OF ANEMIA NEUROPATHY - Physical Exam Results Vital Signs: Vital Signs Temperature 98.1 F 01/24/18 06:20 Pulse Rate 54 L 01/24/18 06:20 Respiratory Rate 16 01/24/18 06:20 Blood Pressure 124/75 01/24/18 06:20 O2 Sat by Pulse Oximetry (%) Pertinent Admission Physical Exam Findings: WITHDRAWAL SIGNS AND SYMPTOM Vital Signs Temperature 98.1 F 01/24/18 06:20 Pulse Rate 54 L 01/24/18 06:20 Respiratory Rate 16 01/24/18 06:20 Blood Pressure 124/75 01/24/18 06:20 O2 Sat by Pulse Oximetry (%) Laboratory Last Values WBC 3.7 K/mm3 (4.0-10.0) L D 01/21/18 07:00 RBC 4.32 M/mm3 (3.60-5.2) 01/21/18 07:00 Hgb 11.3 GM/dL (10.7-15.3) 01/21/18 07:00 Hct 35.5 % (32.4-45.2) 01/21/18 07:00 MCV 82.1 fl (80-96) 01/21/18 07:00 MCH 26.2 pg (25.7-33.7) 01/21/18 07:00 MCHC 31.9 g/dl (32.0-36.0) L 01/21/18 07:00 RDW 21.8 % (11.6-15.6) H 01/21/18 07:00 Plt Count 240 K/MM3 (134-434) 01/21/18 07:00 MPV 7.9 fl (7.5-11.1) 01/21/18 07:00 Sodium 139 mmol/L (136-145) 01/21/18 07:00 Potassium 3.8 mmol/L (3.5-5.1) 01/21/18 07:00 Chloride 107 mmol/L (98-107) 01/21/18 07:00 Carbon Dioxide 24 mmol/L (21-32) 01/21/18 07:00 Anion Gap 8 (8-16) 01/21/18 07:00 BUN 5 mg/dL (7-18) L 01/21/18 07:00 Creatinine 0.7 mg/dL (0.55-1.02) 01/21/18 07:00 Creat Clearance w eGFR > 60 (>60) 01/21/18 07:00 Random Glucose 85 mg/dL (74-106) 01/21/18 07:00 Calcium 9.0 mg/dL (8.5-10.1) 01/21/18 07:00 Total Bilirubin 0.5 mg/dL (0.2-1.0) D 01/21/18 07:00 AST 18 U/L (15-37) 01/21/18 07:00 ALT 13 U/L (12-78) 01/21/18 07:00 Alkaline Phosphatase 57 U/L (45-117) 01/21/18 07:00 Total Protein 6.7 g/dl (6.4-8.2) 01/21/18 07:00 Albumin 3.3 g/dl (3.4-5.0) L 01/21/18 07:00 RPR Titer Nonreactive (NONREACTIVE) 01/21/18 07:00 HIV 1&2 Antibody Screen Negative 01/21/18 07:00 HIV P24 Antigen Negative 01/21/18 07:00 - Treatment Hospital Course: Detox Protocol Followed, Detoxed Safely, Responded well, Discharged Condition Good, Rehab Referral Accepted Patient has Accepted a Rehab Referral to: [facility] - Medication Discharge Medications: Ambulatory Orders Duloxetine HCl 30 mg PO DAILY 01/19/18 Ferrous Sulfate 325 mg PO DAILY 01/19/18 Thiamine HCl [B-1] 100 mg PO DAILY 01/19/18 Amlodipine Besylate [Norvasc -] 5 mg PO DAILY 01/20/18 Cyanocobalamin [Vitamin B12 -] 1,000 mcg PO DAILY #30 tablet 01/20/18 Vitamins (Sjr) - 1 tab PO DAILY #30 tablet 01/20/18 - Diagnosis (1) Alcohol dependence with uncomplicated withdrawal Current Visit: Yes Status: Acute (2) Dehydration Current Visit: Yes Status: Acute (3) Asthma Current Visit: Yes Status: Chronic Qualifiers: Asthma severity: unspecified severity Asthma persistence: unspecified Asthma complication type: unspecified Qualified Code(s): J45.909 - Unspecified asthma, uncomplicated (4) Neuropathy Current Visit: Yes Status: Acute (5) History of anemia Current Visit: Yes Status: Acute - AMA Did Patient Leave Against Medical Advice: No
[2018-01-24] MEDS ORDERED: ALBUTEROL SO4 18 GM HFA INHALER IH PRN (08:15)
[2018-01-24 09:53] VITALS: BP 108/70; PULSE 66
[2018-01-24 11:03] LABS: URINE APPEARANCE CLEAR; URINE BILIRUBIN NEGATIVE (<2.0 mg/dL); URINE COLOR LTYELLOW; URINE GLUCOSE (UA) NEGATIVE (NEGATIVE); URINE KETONE NEGATIVE (NEGATIVE); URINE NITRITE NEGATIVE (NEGATIVE); URINE PROTEIN NEGATIVE (NEGATIVE); URINE UROBILINOGEN NEGATIVE mg/dL (0.2-1.0)
[2018-01-24 11:07] LABS: URINE LEUK ESTERASE 3+ (NEGATIVE)
[2018-01-24 11:18] LABS: EPI CELLS RARE /HPF (FEW)
--- NOTE | 2018-01-25 00:54 | EKG ---
Test Reason : Blood Pressure : / mmHG Vent. Rate : 083 BPM Atrial Rate : 083 BPM P-R Int : 138 ms QRS Dur : 090 ms QT Int : 388 ms P-R-T Axes : 073 000 065 degrees QTc Int : 455 ms NORMAL SINUS RHYTHM MODERATE VOLTAGE CRITERIA FOR LVH, MAY BE NORMAL VARIANT BORDERLINE ECG WHEN COMPARED WITH ECG OF 20-JAN-2018 19:47, NO SIGNIFICANT CHANGE WAS FOUND Confirmed by CORINNA LUCERO MD ([id number]) on 01/25/2018 12:53:58 AM Referred By: Confirmed By:CORINNA LUCERO MD
== END 2018-01-24 10:00 | disposition home or self-care (01) | DRG 775 ==
LOC: YASAS 16:14 → Y6N 17:48
PROVIDERS: ADMIT Surgery; ATTEND Surgery
PROC: HZ2ZZZZ Detoxification Services for Substance Abuse Treatment (ICD-10-PCS; principal; 2018-01-20)
DX: F10.230 Alcohol dependence with withdrawal, uncomplicated (principal); F41.8 Other specified anxiety disorders; F41.9 Anxiety disorder, unspecified; I10 Essential (primary) hypertension; E86.0 Dehydration; G62.9 Polyneuropathy, unspecified; G47.00 Insomnia, unspecified; Z86.2 Personal history of diseases of the blood and blood-forming organs and certain disorders involving the immune mechanism
CPT/HCPCS: 36415; 80053; 81003; 81015; 85027; 86593; 87389; 93005; 93010